=== PATIENT | male | born 1940 | race African-American/Black ===

== ENCOUNTER 2017-10-28 14:01 | Outpatient (CLI) | payer MEDICARE, MEDICAID ==
[~2017-10-28] VITALS: Ht 33 cm; Wt 0.5 kg
[~2017-10-28 14:01] MED LIST: ACETAMINOPHEN-1 EAC1 ORAL; ALBUTEROL2.5 MG/3 M INH; ASPIRIN81 M3 PO; ATORVASTATIN CA40 MG ORAL; FULL SPECTRUM0.8 MG PO; HYDRALAZINE HCL25 M1 ORAL; IPRATROPIU0.2 MG/1 M HHN; LISINOPRIL5 MG ORAL; METOPROLOL TART25 MG ORAL; NAMENDA5 MG ORAL; PROAIR HFA8.5 GM INH; RENVELA800 MG ORAL
[2017-10-28] MEDS ORDERED: LIDOCAINE700 M1 TP (15:09)
[2017-10-28] MEDS ORDERED: ZOFRAN4 M3 ORAL (15:09)
[2017-10-28] MEDS ORDERED: DUONEB 0.5-3(2.53 ML HHN (15:09)
[2017-10-28] MEDS ORDERED: GLUCOSE GEL38 GM PO (15:09)
[2017-10-28] MEDS ORDERED: LISINOPRIL5 MG ORAL (15:09)
[2017-10-28] MEDS ORDERED: NOVOLOG100 UNIT/3 SUBQ (15:09)
[2017-10-28] MEDS ORDERED: LATANOPROST2.5 ML BOTH EYES (15:09)
[2017-10-28] MEDS ORDERED: GLUCAGEN1 M1 IM (15:09)
[2017-10-28] MEDS ORDERED: CARVEDILOL3.125 MG ORAL (15:09)
[2017-10-28] MEDS ORDERED: AMIODARONE HCL400 M1 ORAL (15:09)
[2017-10-28] MEDS ORDERED: RENVELA0.8 GM ORAL (15:09)
[2017-10-28] MEDS ORDERED: NEPHROVITE1 TAB ORAL (15:09)
[2017-10-28] MEDS ORDERED: GLYCOLAX225 GM PO (15:09)
[2017-10-28 15:28] VITALS: BP 122/68
[2017-10-28] MEDS ORDERED: SENSIPAR30 MG ORAL (15:34)
[2017-10-28] MEDS ORDERED: MIDODRINE HCL10 MG ORAL (15:34)
--- NOTE | 2017-10-28 16:08 | GI Initial Consult Note ---
Jeanne Lawson N.P. 10/28/17 1608: History of Present Illness General Date patient seen: Oct 28, 2017 Time patient seen: 16:00 Referring physician: STAN Reason for Consultation: ABDOMINAL PAIN Present Illness HPI The patient is a 77 year old male referred by Dr. Davis for abdominal pain greater than one month. Patient c/o of mid abdominal pain, more so before he urinates and/or defecates. He c/o of constipation every other day. Denies any rectal bleeding. Also with pain to this right big toe. Last colonoscopy either in 2015/2016 which he states was negative. Denies any unintentional weight loss or changes in dietary habits. Noted that patient is a fall risk. Home Meds Active Scripts Acetaminophen With Codeine (T#3) (TYLENOL #3 TAB*) 1 Each Tablet, 1 TAB ORAL Q8H Y for For Pain, #20 TAB Prov:ANASTASIA LAWSON M.D. 11/07/14 Aspirin (Aspirin) 81 Mg Tab.chew, 81 MG PO DAILY, #30 TAB Prov:MANNY CAPONE M.D. 11/07/14 Reported Medications Cinacalcet* (SENSIPAR*) 30 Mg Tablet, 30 MG ORAL DAILY, TAB 10/28/17 Midodrine* (PROAMATINE*) 10 Mg Tablet, 10 MG ORAL QOD, TAB 10/28/17 Sevelamer Carbonate* (RENVELA*) 0.8 Gm Powd.pack, 1600 MG ORAL THREE TIMES A DAY , PACK 10/28/17 Insulin Aspart* (NOVOLOG*) 100 Unit/1 Ml Insuln.pen, 0 SUBQ BEFORE MEALS AND HS , #1 EA 0 Refills 10/28/17 Ondansetron* (ZOFRAN*) 4 Mg Tablet, 4 MG ORAL Q4HR Y for Nausea & Vomiting, TAB 10/28/17 Vitamin B Cmplx/Vit C/Folic AC (Nephro-Iglesia Tablet) 0.8 Mg Tablet, 1 TAB ORAL DAILY, #30 TAB 0 Refills 10/28/17 Lisinopril (LISINOPRIL*) 5 Mg Tablet, 2.5 MG ORAL DAILY, TAB 10/28/17 Lidocaine (Lidocaine) 1 Each Adh..patch, 700 MG TP BID, PATCH 10/28/17 Latanoprost* (XALATAN*) 2.5 Ml Drops, 1 DROP BOTH EYES BEDTIME, ML 0 Refills 10/28/17 Polyethylene Glycol 3350 (Glycolax) 119 Gm Powder, 17 GM PO BID, GM 10/28/17 Glucagon,Human Recombinant (Glucagen) 1 Mg Vial, 1 MG IM PRN, KIT 10/28/17 Ipratropium/Albuterol Sulfate (DuoNeb 0.5-3(2.5)mg/3ml) 3 Ml Ampul.neb, 3 ML HHN Q4HR, EA 10/28/17 Dextrose (GLUCOSE GEL) 38 Gm Gel..gram., 15 GM PO PRN, GM 10/28/17 Carvedilol* (CARVEDILOL*) 3.125 Mg Tablet, 3.125 MG ORAL EVERY 12 HOURS, TAB 10/28/17 Amiodarone Hcl* (AMIODARONE HCL*) 400 Mg Tablet, 200 MG ORAL DAILY, TAB 10/28/17 Discontinued Reported Medications Ipratropium Quin[place] 0.5MG/2.5ML (IPRATROPIUM BROMIDE 0.5MG/2.5ML) 0.2 Mg/1 Ml Solution, 0.5 MG HHN QID Y for Shortness of Breath, #28 EA 10/31/14 Folic Acid/Vitamin B Comp W-C (FULL SPECTRUM B WITH VIT C TAB) 0.8 Mg Tablet, 0.8 MG PO DAILY, TAB 10/31/14 Hydralazine Hcl* (HYDRALAZINE HCL*) 25 Mg Tablet, 25 MG ORAL EVERY 8 HOURS, TAB 0 Refills 10/31/14 Memantine Hcl* (NAMENDA*) 5 Mg Tablet, 5 MG ORAL DAILY, TAB 10/31/14 Sevelamer Carbonate (Renvela) 800 Mg Tab, 800 MG ORAL THREE TIMES A DAY, TAB 10/31/14 Metoprolol Tartrate* (METOPROLOL TARTRATE*) 25 Mg Tablet, 25 MG ORAL EVERY 12 HOURS, TAB 10/31/14 Albuterol Sulfate* (ALBUTEROL SULFATE HHN*) 2.5 Mg/3 Ml Vial.neb, 3 ML INH Q4H Y for Shortness of Breath, EA 10/31/14 Albuterol Sulfate* (PROAIR HFA*) 8.5 Gm Hfa.aer.ad, 1 PUFF INH Q4HR, #8.5 GM 0 Refills 10/31/14 Discontinued Scripts Atorvastatin Calcium* (ATORVASTATIN CALCIUM*) 40 Mg Tablet, 40 MG ORAL BEDTIME, #30 TAB Prov:MANNY CAPONE M.D. 11/07/14 Lisinopril (LISINOPRIL*) 5 Mg Tablet, 10 MG ORAL DAILY, #30 TAB Prov:MANNY CAPONE M.D. 11/07/14 Med list reviewed/reconciled: Yes Allergies: Coded Allergies: NO KNOWN DRUG ALLERGIES (Unverified Allergy, Unknown, 11/07/14) Patient History History Provided By: Patient, Medical Record PMH Narrative PAST MEDICAL HISTORY: Positive for end-stage renal disease on hemodialysis Mondays, Wednesdays, and Fridays, hypertension, COPD, and diabetes. PAST SURGICAL HISTORY: Right AV graft. Social History: Denies: smoking, alcohol use, drug use, other Review of Systems All Other Systems: negative except mentioned in HPI Physical Exam Vital Signs Date Time Temp Pulse Resp B/P (MAP) Pulse Ox O2 Delivery O2 Flow Rate FiO2 10/28/17 15:28 67 16 122/68 93 Sp02 EP Interpretation: reviewed, normal General Appearance: well appearing, no apparent distress, alert Head: normocephalic EENT: PERRL/EOMI, normal ENT inspection Neck: supple Respiratory: normal breath sounds, no respiratory distress Cardiovascular: normal rate Gastrointestinal: normal inspection, non tender, soft, normal bowel sounds, non -distended Rectal: deferred Genitourinary: deferred Musculoskeletal: normal inspection, back normal Neurologic: normal inspection, alert, oriented x3, responsive Psychiatric: normal inspection, judgement/insight normal, memory normal Skin: normal inspection, normal color, no rash, warm/dry, palpation normal, well hydrated Lymphatic: normal inspection, no adenopathy GI: Plan Problems: (1) Abdominal pain (2) Constipation Plan labs reviewed >> low albumin, increased T4, anemia ordered abdominal U/S rx colace RTC after imaging study Seen with Dr. Parisi. Thank you for this patient referral. MADAI PARISI 10/29/17 1046: History of Present Illness Present Illness Home Meds Active Scripts Acetaminophen With Codeine (T#3) (TYLENOL #3 TAB*) 1 Each Tablet, 1 TAB ORAL Q8H Y for For Pain, #20 TAB Prov:ANASTASIA LAWSON M.D. 11/07/14 Aspirin (Aspirin) 81 Mg Tab.chew, 81 MG PO DAILY, #30 TAB Prov:MANNY CAPONE M.D. 11/07/14 Reported Medications Cinacalcet* (SENSIPAR*) 30 Mg Tablet, 30 MG ORAL DAILY, TAB 10/28/17 Midodrine* (PROAMATINE*) 10 Mg Tablet, 10 MG ORAL QOD, TAB 10/28/17 Sevelamer Carbonate* (RENVELA*) 0.8 Gm Powd.pack, 1600 MG ORAL THREE TIMES A DAY , PACK 10/28/17 Insulin Aspart* (NOVOLOG*) 100 Unit/1 Ml Insuln.pen, 0 SUBQ BEFORE MEALS AND HS , #1 EA 0 Refills 10/28/17 Ondansetron* (ZOFRAN*) 4 Mg Tablet, 4 MG ORAL Q4HR Y for Nausea & Vomiting, TAB 10/28/17 Vitamin B Cmplx/Vit C/Folic AC (Nephro-Iglesia Tablet) 0.8 Mg Tablet, 1 TAB ORAL DAILY, #30 TAB 0 Refills 10/28/17 Lisinopril (LISINOPRIL*) 5 Mg Tablet, 2.5 MG ORAL DAILY, TAB 10/28/17 Lidocaine (Lidocaine) 1 Each Adh..patch, 700 MG TP BID, PATCH 10/28/17 Latanoprost* (XALATAN*) 2.5 Ml Drops, 1 DROP BOTH EYES BEDTIME, ML 0 Refills 10/28/17 Polyethylene Glycol 3350 (Glycolax) 119 Gm Powder, 17 GM PO BID, GM 10/28/17 Glucagon,Human Recombinant (Glucagen) 1 Mg Vial, 1 MG IM PRN, KIT 10/28/17 Ipratropium/Albuterol Sulfate (DuoNeb 0.5-3(2.5)mg/3ml) 3 Ml Ampul.neb, 3 ML HHN Q4HR, EA 10/28/17 Dextrose (GLUCOSE GEL) 38 Gm Gel..gram., 15 GM PO PRN, GM 10/28/17 Carvedilol* (CARVEDILOL*) 3.125 Mg Tablet, 3.125 MG ORAL EVERY 12 HOURS, TAB 10/28/17 Amiodarone Hcl* (AMIODARONE HCL*) 400 Mg Tablet, 200 MG ORAL DAILY, TAB 10/28/17 Discontinued Reported Medications Ipratropium Quincy 0.5MG/2.5ML (IPRATROPIUM BROMIDE 0.5MG/2.5ML) 0.2 Mg/1 Ml Solution, 0.5 MG HHN QID Y for Shortness of Breath, #28 EA 10/31/14 Folic Acid/Vitamin B Comp W-C (FULL SPECTRUM B WITH VIT C TAB) 0.8 Mg Tablet, 0.8 MG PO DAILY, TAB 10/31/14 Hydralazine Hcl* (HYDRALAZINE HCL*) 25 Mg Tablet, 25 MG ORAL EVERY 8 HOURS, TAB 0 Refills 10/31/14 Memantine Hcl* (NAMENDA*) 5 Mg Tablet, 5 MG ORAL DAILY, TAB 10/31/14 Sevelamer Carbonate (Renvela) 800 Mg Tab, 800 MG ORAL THREE TIMES A DAY, TAB 10/31/14 Metoprolol Tartrate* (METOPROLOL TARTRATE*) 25 Mg Tablet, 25 MG ORAL EVERY 12 HOURS, TAB 10/31/14 Albuterol Sulfate* (ALBUTEROL SULFATE HHN*) 2.5 Mg/3 Ml Vial.neb, 3 ML INH Q4H Y for Shortness of Breath, EA 10/31/14 Albuterol Sulfate* (PROAIR HFA*) 8.5 Gm Hfa.aer.ad, 1 PUFF INH Q4HR, #8.5 GM 0 Refills 10/31/14 Discontinued Scripts Atorvastatin Calcium* (ATORVASTATIN CALCIUM*) 40 Mg Tablet, 40 MG ORAL BEDTIME, #30 TAB Prov:MANNY CAPONE M.D. 11/07/14 Lisinopril (LISINOPRIL*) 5 Mg Tablet, 10 MG ORAL DAILY, #30 TAB Prov:MANNY CAPONE M.D. 11/07/14 Allergies: Coded Allergies: NO KNOWN DRUG ALLERGIES (Unverified Allergy, Unknown, 11/07/14) GI: Plan Plan The patient was seen and examined at bedside and all new and available data was reviewed in the patients chart. I agree with the above findings, impression and plan. (Patient seen earlier today. Signature stamp does not reflect patient encounter time.). - MD Leona Parada,[facility] Jignesh Cartagena.P. Oct 28, 2017 16:08 MADAI PARISI Oct 29, 2017 10:46
== END 2017-10-28 14:45 | disposition home or self-care (01) ==
LOC: PAN 14:01
DX: R10.9 Unspecified abdominal pain (principal); K59.00 Constipation, unspecified; I12.0 Hypertensive chronic kidney disease with stage 5 chronic kidney disease or end stage renal disease; E11.22 Type 2 diabetes mellitus with diabetic chronic kidney disease; N18.6 End stage renal disease; Z99.2 Dependence on renal dialysis; J44.9 Chronic obstructive pulmonary disease, unspecified; Z98.2 Presence of cerebrospinal fluid drainage device; Z91.81 History of falling
CPT/HCPCS: 99203

== ENCOUNTER 2017-11-04 08:49 | Outpatient (CLI) | payer MEDICARE, MEDICAID ==
[~2017-11-04 08:49] MED LIST changes: +AMIODARONE HCL400 M1 ORAL; +CARVEDILOL3.125 MG ORAL; +DUONEB 0.5-3(2.53 ML HHN; +GLUCAGEN1 M1 IM; +GLUCOSE GEL38 GM PO; +GLYCOLAX225 GM PO; +LATANOPROST2.5 ML BOTH EYES; +LIDOCAINE700 M1 TP; +MIDODRINE HCL10 MG ORAL; +NEPHROVITE1 TAB ORAL; +NOVOLOG100 UNIT/3 SUBQ; +RENVELA0.8 GM ORAL; +SENSIPAR30 MG ORAL; +ZOFRAN4 M3 ORAL
--- NOTE | 2017-11-04 11:04 | Diagnostic Imaging Report ---
Indication: Abdominal pain Technique: Shane-scale and duplex images of the upper abdomen were obtained Comparison: none Findings: There is trace ascites fluid. Gallbladder is unremarkable, without stones, wall thickening, nor pericholecystic fluid. Sonographic Matthews's sign is negative. Common bile duct measures for mm in diameter. No intrahepatic biliary ductal dilatation. Liver demonstrates normal echogenicity, no focal abnormality. Portal vein and hepatic veins are patent. Pancreas is unremarkable. Spleen is unremarkable. Left kidney is poorly visualized measures 6.5 cm in length. Right kidney measures 9.2 cm length. Kidneys demonstrate increased echogenicity There is no hydronephrosis. The right kidney demonstrates multiple cysts . Abdominal aorta is nonaneurysmal. However, material is seen within the distal abdominal aorta. This appears to be nearly but probably incompletely occlusive, as signal is seen within the bilateral common iliac arteries. . There are bilateral pleural effusions Impression: Near-occlusive plaque or thrombus, acuity indeterminate if the latter, in the distal abdominal aorta. Correlate with clinical findings, consider CT angiography for better characterization if clinically relevant Bilateral pleural effusions Trace ascites Negative for gallstones or dilated ducts Echogenic right kidney with cysts, no hydronephrosis. Findings consistent with known history of chronic renal disease Poorly visualized echogenic left kidney Dr. Lindo's nurse practitioner Ash notified of the findings at the time of interpretation
== END 2017-11-04 10:49 | disposition home or self-care (01) ==
LOC: ULS 08:49
DX: R10.9 Unspecified abdominal pain (principal); J90 Pleural effusion, not elsewhere classified; N28.1 Cyst of kidney, acquired; N18.9 Chronic kidney disease, unspecified
CPT/HCPCS: 76700

== ENCOUNTER 2017-11-04 12:54 | Outpatient (CLI) | payer MEDICARE, MEDICAID ==
[2017-11-04 13:23] VITALS: BP 125/68
--- NOTE | 2017-11-04 15:57 | GI Progress Note ---
Assessment/Plan Problems: (1) Abdominal pain ICD Codes: R10.9 - Unspecified abdominal pain SNOMED: [id number] (2) Constipation ICD Codes: K59.00 - Constipation, unspecified SNOMED: 58248218 Status: stable Status Narrative Discussed with Dr. Lindo. Assessment/Plan abdominal U/S reviewed >> Near-occlusive plaque or thrombus, acuity indeterminate if the latter, in the distal abdominal aorta. Correlate with clinical findings, consider CT angiography for better characterization if clinically relevant. Bilateral pleural effusions Trace ascites Negative for gallstones or dilated ducts Echogenic right kidney with cysts, no hydronephrosis. Findings consistent with known history of chronic renal disease Poorly visualized echogenic left kidney ordered CT AP angiogram RTC after imaging study The patient was seen and examined at bedside and all new and available data was reviewed in the patients chart. I agree with the above findings, impression and plan. (Patient seen earlier today. Signature stamp does not reflect patient encounter time.). - Mingo Lindo MD Subjective Subjective abdominal pain Objective T 98.2 Bp 125/68 P 77 General Appearance: no apparent distress, alert Cardiovascular: normal rate Respiratory/Chest: normal breath sounds, no respiratory distress Abdominal Exam: soft Jeanne Delgadillo N.PKayla Nov 04, 2017 15:57 MADAI LINDO Nov 08, 2017 14:12
== END 2017-11-04 13:29 | disposition home or self-care (01) ==
LOC: PAN 12:54
DX: R10.9 Unspecified abdominal pain (principal); K59.00 Constipation, unspecified; J90 Pleural effusion, not elsewhere classified; N18.9 Chronic kidney disease, unspecified
CPT/HCPCS: 99213